=== PATIENT | female | born 1960 | race Caucasian/White ===

== ENCOUNTER → 2019-08-14 | Outpatient (REF) | payer MEDICAID ==
[2019-08-14 11:52] LABS: BASO # 0.1 10^3/uL (0.0-0.2); BASO % 0.7 % (0.0-1.0); EOS # 0.3 10^3/uL (0.0-0.5); EOS % 3.6 % (0.0-3.0); HEMATOCRIT 39.2 % (36.0-47.0); HEMOGLOBIN 14.2 g/dl (12.0-15.5); LYMPH # 3.5 10^3/uL (1.5-5.0); LYMPH % 50.4 % (24.0-44.0); MEAN CORPUSCULAR HEMOGLOBIN 29.1 pg (27.0-33.0); MEAN CORPUSCULAR HGB CONC 36.2 g/dl (32.0-36.5); MEAN CORPUSCULAR VOLUME 80.3 fl (80.0-96.0); MONO # 0.6 10^3/uL (0.0-0.8); MONO % 8.5 % (0.0-5.0); NEUTROPHILS # 2.5 10^3/uL (1.5-8.5); NEUTROPHILS % 36.7 % (36.0-66.0); PLATELET COUNT, AUTOMATED 288 10^3/uL (150-450); RED BLOOD COUNT 4.88 10^6/uL (4.00-5.40); WHITE BLOOD COUNT 6.9 10^3/uL (4.0-10.0)
[2019-08-14 12:10] LABS: ALBUMIN 3.6 GM/DL (3.2-5.2); BILIRUBIN,TOTAL 0.7 MG/DL (0.2-1.0); CALCIUM LEVEL 8.6 MG/DL (8.8-10.2); CHOLESTEROL RISK RATIO 3.48 (<5); CREATININE FOR GFR 1.01 MG/DL (0.55-1.30); FOLATE 17.1 NG/ML; FREE T4 1.13 NG/DL (0.76-1.46); GLOMERULAR FILTRATION RATE 59.5 (>45); POTASSIUM SERUM 3.6 MEQ/L (3.5-5.1); THYROID STIMULATING HORMONE 3.93 uIU/ML (0.358-3.740); TOTAL 25(OH) VITAMIN D 23.7 NG/ML (30.0-100.0); TOTAL PROTEIN 7.5 GM/DL (6.4-8.2)
[2019-08-14 12:17] LABS: HEMOGLOBIN A1c 5.8 %
[2019-08-14 13:24] LABS: APPEARANCE, URINE HAZY (CLEAR); BACTERIA, URINE AUTO NEGATIVE (NEGATIVE); BILIRUBIN, URINE AUTO NEGATIVE (NEGATIVE); BLOOD, URINE BLOOD 1+ (NEGATIVE); COLOR, URINE YELLOW (YELLOW); GLUCOSE, URINE (UA) AUTO NEGATIVE (NEGATIVE); KETONE, URINE AUTO NEGATIVE (NEGATIVE); LEUKOCYTE ESTERASE, URINE AUTO NEGATIVE (NEGATIVE); MUCUS, URINE SMALL (NEGATIVE); NITRITE, URINE AUTO NEGATIVE (NEGATIVE); PROTEIN, URINE AUTO NEGATIVE (NEGATIVE); RBC, URINE AUTO 0 /HPF (0-3); SPECIFIC GRAVITY URINE AUTO 1.016 (1.002-1.035); SQUAMOUS EPITHELIAL CELL UR AU 10 /HPF (0-6); WBC, URINE AUTO 2 /HPF (0-3)
== END ==
LOC: M LAB REF 11:32
PROVIDERS: ATTEND Nurse Practitioner Family
DX: E66.9 Obesity, unspecified (principal); I10 Essential (primary) hypertension; K21.9 Gastro-esophageal reflux disease without esophagitis; Z13.9 Encounter for screening, unspecified

== ENCOUNTER → 2019-11-15 | Outpatient (CLI) | payer MEDICAID ==
--- NOTE | 2019-12-05 07:55 | REPMRS ---
Patient History The patient states she has not had a clinical breast exam in over a year. Family history of ovarian cancer at age 81 in mother, breast cancer at age 59 in sister, breast cancer in maternal aunt. Digital Woman Screen Mammo: November 15, 2019 - Exam #: [id number] Bilateral CC and MLO view(s) were taken. Technologist: Leighann Salinas, Technologist Prior study comparison: January 24, 2018, bilateral digital mammo screening bilat, [facility]. January 13, 2017, bilateral digital mammo screening bilat, performed at [facility]. FINDINGS: There are scattered fibroglandular densities. The Volpara volumetric breast density category is:B. There has been no change in the appearance of the mammogram from the prior studies. There is a mild amount of scattered fibroglandular density which is fairly symmetric. There is no interval development of dominant mass, architectural distortion, or grouped microcalcification suggestive of malignancy. 3-D tomosynthesis shows no additional findings. Assessment: BI-RADS/ACR category 1 mammogram. Negative Mammogram. Recommendation Routine screening mammogram of both breasts in 1 year (for women over age 40). This patient's Lifetime Breast Cancer Risk is estimated at 16.0 %. This mammogram was interpreted with the aid of an FDA-approved computer-aided dectection system. Electronically Signed By: Juanito Silverio MD 12/05/19 0755
== END ==
LOC: M WHC 17:52
PROVIDERS: ATTEND Nurse Practitioner Family
DX: Z12.31 Encounter for screening mammogram for malignant neoplasm of breast (principal); Z80.41 Family history of malignant neoplasm of ovary; Z80.3 Family history of malignant neoplasm of breast

== ENCOUNTER → 2019-11-29 | Outpatient (REF) | payer MEDICAID ==
[2019-11-29 14:18] LABS: ALBUMIN 3.7 GM/DL (3.2-5.2); BILIRUBIN,TOTAL 1.1 MG/DL (0.2-1.0); CALCIUM LEVEL 8.8 MG/DL (8.8-10.2); CHOLESTEROL RISK RATIO 3.298 (<5); CREATININE FOR GFR 1.03 MG/DL (0.55-1.30); FREE T4 1.04 NG/DL (0.76-1.46); GLOMERULAR FILTRATION RATE 58.2 (>45); POTASSIUM SERUM 3.6 MEQ/L (3.5-5.1); THYROID STIMULATING HORMONE 2.69 uIU/ML (0.358-3.740); TOTAL PROTEIN 7.6 GM/DL (6.4-8.2)
[2019-11-29 14:21] LABS: BASO % 0.5 % (0.0-1.0); EOS # 0.2 10^3/uL (0.0-0.5); EOS % 3.3 % (0.0-3.0); HEMATOCRIT 40.2 % (36.0-47.0); HEMOGLOBIN 14.1 g/dl (12.0-15.5); LYMPH # 3.4 10^3/uL (1.5-5.0); LYMPH % 53.6 % (24.0-44.0); MEAN CORPUSCULAR HEMOGLOBIN 28.5 pg (27.0-33.0); MEAN CORPUSCULAR HGB CONC 35.1 g/dl (32.0-36.5); MEAN CORPUSCULAR VOLUME 81.2 fl (80.0-96.0); MONO # 0.6 10^3/uL (0.0-0.8); MONO % 9.7 % (0.0-5.0); NEUTROPHILS # 2.1 10^3/uL (1.5-8.5); NEUTROPHILS % 32.4 % (36.0-66.0); PLATELET COUNT, AUTOMATED 331 10^3/uL (150-450); RED BLOOD COUNT 4.95 10^6/uL (4.00-5.40); WHITE BLOOD COUNT 6.4 10^3/uL (4.0-10.0)
[2019-11-29 18:28] LABS: HEMOGLOBIN A1c 5.7 %
== END ==
LOC: M LAB REF 12:27
PROVIDERS: ATTEND Nurse Practitioner Family
DX: M25.512 Pain in left shoulder (principal); M54.5 Low back pain; E66.9 Obesity, unspecified; Z13.9 Encounter for screening, unspecified; K21.9 Gastro-esophageal reflux disease without esophagitis; I10 Essential (primary) hypertension

== ENCOUNTER → 2020-07-09 | Outpatient (REF) | payer MEDICAID ==
[2020-07-09 13:20] LABS: BASO % 0.8 % (0.0-1.0); EOS # 0.2 10^3/uL (0.0-0.5); EOS % 4.1 % (0.0-3.0); HEMATOCRIT 41.2 % (36.0-47.0); HEMOGLOBIN 14.7 g/dl (12.0-15.5); LYMPH # 2.7 10^3/uL (1.5-5.0); LYMPH % 51.3 % (24.0-44.0); MEAN CORPUSCULAR HEMOGLOBIN 28.9 pg (27.0-33.0); MEAN CORPUSCULAR HGB CONC 35.7 g/dl (32.0-36.5); MEAN CORPUSCULAR VOLUME 81.1 fl (80.0-96.0); MONO # 0.4 10^3/uL (0.0-0.8); MONO % 8.3 % (2.0-8.0); NEUTROPHILS # 1.9 10^3/uL (1.5-8.5); NEUTROPHILS % 35.3 % (36.0-66.0); PLATELET COUNT, AUTOMATED 300 10^3/uL (150-450); RED BLOOD COUNT 5.08 10^6/uL (4.00-5.40); WHITE BLOOD COUNT 5.3 10^3/uL (4.0-10.0)
[2020-07-09 13:22] LABS: APPEARANCE, URINE HAZY (CLEAR); BACTERIA, URINE AUTO NEGATIVE (NEGATIVE); BILIRUBIN, URINE AUTO NEGATIVE (NEGATIVE); BLOOD, URINE BLOOD 1+ (NEGATIVE); COLOR, URINE YELLOW (YELLOW); GLUCOSE, URINE (UA) AUTO NEGATIVE (NEGATIVE); KETONE, URINE AUTO NEGATIVE (NEGATIVE); LEUKOCYTE ESTERASE, URINE AUTO NEGATIVE (NEGATIVE); MUCUS, URINE SMALL (NEGATIVE); NITRITE, URINE AUTO NEGATIVE (NEGATIVE); PROTEIN, URINE AUTO NEGATIVE (NEGATIVE); RBC, URINE AUTO 0 /HPF (0-3); SQUAMOUS EPITHELIAL CELL UR AU 6 /HPF (0-6); WBC, URINE AUTO 1 /HPF (0-3)
[2020-07-09 14:11] LABS: ALBUMIN 3.8 GM/DL (3.2-5.2); ALT/SGPT 29 U/L (12-78); BILIRUBIN,TOTAL 0.8 MG/DL (0.2-1.0); BLOOD UREA NITROGEN 11 MG/DL (7-18); CALCIUM LEVEL 9.2 MG/DL (8.8-10.2); CARBON DIOXIDE LEVEL 29 MEQ/L (21-32); CHLORIDE LEVEL 104 MEQ/L (98-107); CHOLESTEROL LEVEL 167 MG/DL (<200); CHOLESTEROL RISK RATIO 2.693 (<5); CREATININE FOR GFR 0.94 MG/DL (0.55-1.30); FREE T4 1.04 NG/DL (0.76-1.46); GLOMERULAR FILTRATION RATE > 60.0 (>45); GLUCOSE, FASTING 128 MG/DL (70-100); HDL CHOLESTEROL 62 MG/DL (>40); LDL CHOLESTEROL 75 MG/DL (<100); MAGNESIUM LEVEL 2.4 MG/DL (1.8-2.4); NON-HDL-C 105 MG/DL; POTASSIUM SERUM 3.5 MEQ/L (3.5-5.1); SODIUM LEVEL 138 MEQ/L (136-145); TOTAL PROTEIN 7.5 GM/DL (6.4-8.2); TRIGLYCERIDES LEVEL 148 MG/DL (<150)
[2020-07-09 14:14] LABS: HEMOGLOBIN A1c 5.6 %
[2020-07-09 14:23] LABS: TOTAL 25(OH) VITAMIN D 21.5 NG/ML (30.0-100.0)
== END ==
LOC: M LAB REF 12:10
PROVIDERS: ATTEND Nurse Practitioner Family
DX: R73.03 Prediabetes (principal); Z13.228 Encounter for screening for other metabolic disorders; E66.9 Obesity, unspecified; Z13.29 Encounter for screening for other suspected endocrine disorder

== ENCOUNTER → 2020-08-14 | Outpatient (CLI) | payer SELFPAY | LOC: M LABSMTC 09:42 | PROVIDERS: ATTEND Pediatrics | DX: Z20.828 Contact with and (suspected) exposure to other viral communicable diseases (principal); Z11.59 Encounter for screening for other viral diseases ==

== ENCOUNTER 2020-08-20 18:32 | Emergency (ER) | payer MEDICAID ==
[~2020-08-20] VITALS: Ht 182.9 cm; Wt 115.9 kg
[2020-08-20] MEDS ORDERED: PANT20TA6 PO (18:44)
[2020-08-20] MEDS ORDERED: LOSA100T50 PO (18:44)
[2020-08-20 20:13] LABS: BASO % 0.2 % (0.0-1.0); EOS # 0.1 10^3/uL (0.0-0.5); EOS % 1.5 % (0.0-3.0); HEMATOCRIT 40.1 % (36.0-47.0); LYMPH # 2.5 10^3/uL (1.5-5.0); LYMPH % 53.5 % (24.0-44.0); MEAN CORPUSCULAR HEMOGLOBIN 27.9 pg (27.0-33.0); MEAN CORPUSCULAR HGB CONC 34.9 g/dl (32.0-36.5); MEAN CORPUSCULAR VOLUME 79.9 fl (80.0-96.0); MONO # 0.4 10^3/uL (0.0-0.8); MONO % 8.9 % (2.0-8.0); NEUTROPHILS # 1.6 10^3/uL (1.5-8.5); NEUTROPHILS % 35.5 % (36.0-66.0); PLATELET COUNT, AUTOMATED 241 10^3/uL (150-450); RED BLOOD COUNT 5.02 10^6/uL (4.00-5.40); WHITE BLOOD COUNT 4.6 10^3/uL (4.0-10.0)
[2020-08-20 21:06] LABS: ALBUMIN 3.6 GM/DL (3.2-5.2); ALT/SGPT 62 U/L (12-78); BILIRUBIN,TOTAL 0.8 MG/DL (0.2-1.0); BLOOD UREA NITROGEN 7 MG/DL (7-18); C REACTIVE PROTEIN QUANTITATIV 1.35 MG/DL (0.00-0.30); CARBON DIOXIDE LEVEL 27 MEQ/L (21-32); CHLORIDE LEVEL 109 MEQ/L (98-107); CK-MB VALUE MASS 1.1 NG/ML (<3.6); CPK CREATINE PHOSPHOKINASE 152 U/L (26-192); CREATININE FOR GFR 0.82 MG/DL (0.55-1.30); FERRITIN 266 NG/ML (8-252); GLOMERULAR FILTRATION RATE > 60.0 (>45); GLUCOSE, FASTING 86 MG/DL (70-100); LDH LACTATE DEHYDROGENASE 316 U/L (84-246); MB/CK RELATIVE INDEX 0.72 (< OR =4); POTASSIUM SERUM 4.4 MEQ/L (3.5-5.1); SODIUM LEVEL 140 MEQ/L (136-145); TOTAL PROTEIN 7.4 GM/DL (6.4-8.2); TROPONIN I < 0.02 NG/ML (< 0.10)
[2020-08-20 22:17] VITALS: BP 127/61
--- NOTE | 2020-08-22 17:03 | REP ---
INDICATION: Coronavirus workup. COMPARISON: None. TECHNIQUE: Single portable AP view of the chest was performed. FINDINGS: There is no acute infiltrate or pulmonary edema. Lungs are clear. The heart is not significantly enlarged. The mediastinal silhouette is unremarkable. The visualized osseous structures are intact. IMPRESSION: No acute pulmonary disease. <Electronically signed by Robin Ceja > 08/22/20 [id number]
== END 2020-08-20 22:26 | disposition home or self-care (01) ==
LOC: M ED 18:32
DX: R19.7 Diarrhea, unspecified (principal); U07.1 COVID-19; I10 Essential (primary) hypertension; K21.9 Gastro-esophageal reflux disease without esophagitis; Z88.0 Allergy status to penicillin

== ENCOUNTER → 2020-08-29 | Outpatient (CLI) | payer MEDICAID ==
[~2020-08-29] MED LIST: LOSA100T50 PO; PANT20TA6 PO
--- NOTE | 2020-09-03 11:46 | SLEEPHOME ---
DIAGNOSTIC HOME SLEEP STUDY DATE: 08/29/2020 ORDERED BY: Jose Nance M.D. Diagnostic home sleep testing was performed due to concern for the obstructive sleep apnea syndrome in this patient with a history of snoring. For testing, a nocturnal T3 respiratory monitoring device was used. Continuous record was made of pulse, oxygen saturation, air flow, chest and abdominal strain, and body position. 9 hours and 59 minutes of data were reviewed. There were 9 hours and 45 minutes marked as time in bed. During the interval marked time in bed, there were 94 respiratory events identified of 10 seconds in duration or greater for a respiratory event index 9.6. The events were primarily obstructive, 16 mixed and central apneas were seen. Baseline pulse rate 73. Pulse rate range 53 to 102. Baseline saturation was 94%. Saturations fell to 88%. Testing was performed in both the supine and non-supine positions. IMPRESSION: Abnormal home sleep testing, with repetitive respiratory events and oxygen desaturations to 88% with a respiratory event index of 9.6, is consistent with the obstructive sleep apnea syndrome. RECOMMENDATION: The patient should be encouraged to undergo formal sleep evaluation.
== END ==
LOC: M SLEEP HO 08:24
PROVIDERS: ATTEND Internal Medicine Cardiovascular Disease
DX: R06.83 Snoring (principal)

== ENCOUNTER → 2020-10-09 | Outpatient (REF) | payer MEDICAID ==
[2020-10-09 18:04] LABS: APPEARANCE, URINE CLEAR (CLEAR); BACTERIA, URINE AUTO NEGATIVE (NEGATIVE); BILIRUBIN, URINE AUTO NEGATIVE (NEGATIVE); BLOOD, URINE BLOOD NEGATIVE (NEGATIVE); COLOR, URINE YELLOW (YELLOW); GLUCOSE, URINE (UA) AUTO NEGATIVE (NEGATIVE); KETONE, URINE AUTO NEGATIVE (NEGATIVE); LEUKOCYTE ESTERASE, URINE AUTO NEGATIVE (NEGATIVE); MUCUS, URINE SMALL (NEGATIVE); NITRITE, URINE AUTO NEGATIVE (NEGATIVE); PROTEIN, URINE AUTO NEGATIVE (NEGATIVE); RBC, URINE AUTO 0 /HPF (0-3); SPECIFIC GRAVITY URINE AUTO 1.005 (1.002-1.035); SQUAMOUS EPITHELIAL CELL UR AU 2 /HPF (0-6); WBC, URINE AUTO 1 /HPF (0-3)
== END ==
LOC: M SMT 17:29
PROVIDERS: ATTEND Urology
DX: R31.29 Other microscopic hematuria (principal)

== ENCOUNTER → 2020-10-29 | Outpatient (CLI) | payer MEDICAID ==
[~2020-10-29] MED LIST changes: +ISOVUE-370 76% 100ML VIAL As Ordered ONE
--- NOTE | 2020-10-29 10:39 | REP ---
INDICATION: MIRCO HEMATURIA UROGRAM. COMPARISON: None. TECHNIQUE: CT abdomen and pelvis performed without IV contrast. CT abdomen pelvis performed with IV contrast as well, following intravenous administration of 100 cc of Isovue 370. Sagittal, coronal and 3D MIP reconstruction images are performed. FINDINGS: Lung bases: Unremarkable. Liver: Some mild diffuse fatty infiltration of the liver. Mild hepatomegaly with vertical diameter of 19 cm midclavicular line. No hepatic mass or biliary dilatation. Gallbladder: Cholecystectomy. Common duct in the jemima hepatis and pancreatic head normal post cholecystectomy appearance without calcification visible within.. Spleen: Normal. Adrenals: Normal. Pancreas: Normal. Kidneys: No evidence of any nephrolithiasis. 9 mm cortical cyst lower pole right kidney. No enhancing renal mass, other cyst, hydronephrosis nor other acute finding. There is no perinephric edema or fluid. Ureters describe a normal course the bladder without dilatation stone Small and large bowel: Unremarkable. Free fluid: None. Adenopathy: None. Appendix: Not inflamed. Osseous structures: Degenerative disc changes at L5-S1 with vacuum phenomenon and marginal osteophytes. Facet arthropathy at L4-5 and L5-S1. Visualized ribs intact. The bony sacrum, pelvis and hips show minor degenerative changes without destructive lesion or fracture Pelvis: Uterus absent. The vaginal cuff intact. No adnexal mass. Bladder well filled without stone, mass or wall thickening. Small bowel loops in the pelvis were unremarkable. No ventral or inguinal hernia. No inguinal or pelvic adenopathy. 3D urogram reconstruction: The collecting systems are symmetric and without dilatation. No definite intrarenal filling defects. The ureters course to the bladder was unremarkable and without dilatation or definite filling defect. The UVJ shows no dilatation. Portion of visualized bladder is without the gross mass, wall thickening or stone. IMPRESSION: 1. Negative CT urogram for renal, ureteral or bladder stone. No solid renal mass, hydronephrosis or hydroureter. There is a 9 mm cyst lower pole of the right kidney 2. Status post hysterectomy with vaginal cuff intact and no adnexal mass. 3. Some fatty infiltration liver with the hepatomegaly without discrete hepatic mass or biliary dilatation. Prior cholecystectomy. <Electronically signed by Ajay Yanez > 10/29/20 [id number]
== END ==
LOC: M RAD 07:30
PROVIDERS: ATTEND Urology
DX: R31.29 Other microscopic hematuria (principal)
CPT/HCPCS: 74178; Q9967